=== PATIENT | female | born 1985 | race Caucasian/White ===

== ENCOUNTER 2020-03-18 10:34 | Outpatient (REF) | payer BC, SELFPAY ==
--- NOTE | 2020-03-18 09:00 | PAPFT_PTH ---
PATIENT: Elif Noonan LOC: [facility] U#:[id number] AGE/SX: 35/F ROOM: RE03/18/[address]: Lisa Patel : 1985 BED: DIS: 03/18/2020 SPEC #: [id number] RECD: 03/18/20 13:04 STATUS: MACKENZIE CUNNINGHAM #: [id number] EDOUARD: 03/18/20 09:[address]: Lisa Patel DEPT: [facility] Cytology RECD BY: Edwige Marroquin Tissues: 1 - CX/ENDOCX FOR PAP SMEARS Procedures: PAP THIN PREP/[facility] Screening HPV DNA PROBE Comments: [id number]
[2020-03-18 14:03] LABS: Hemoglobin A1C 5.3 % (<5.7)
[2020-03-18 14:13] LABS: Calculated LDL 115 mg/dL (<100); Cholesterol 190 mg/dL (<200); HDL Cholesterol 48 mg/dL (40-60); Triglyceride 135 mg/dL (<150)
== END 2020-03-18 10:54 ==
LOC: NCHCN 10:34
PROVIDERS: PCP Registered Nurse; Visit Provider Registered Nurse
DX: Z00.00 Encounter for general adult medical examination without abnormal findings (principal); Z13.1 Encounter for screening for diabetes mellitus; Z83.3 Family history of diabetes mellitus; Z13.220 Encounter for screening for lipoid disorders; Z12.4 Encounter for screening for malignant neoplasm of cervix; Z11.51 Encounter for screening for human papillomavirus (HPV)
CPT/HCPCS: 80061; 88142; 83036; 87624

== ENCOUNTER 2020-11-03 09:18 | Outpatient (REF) | payer BC, SELFPAY ==
[2020-11-03 16:24] LABS: HCT 37.6 % (36.0-46.0); HGB 11.7 g/dL (11.2-15.7); MCH 27.2 pg (27.0-33.0); MCHC 31.1 % (32.0-36.0); MCV 87.4 fL (80-95); MPV 10.9 fL (8.0-11.0); Platelet Count 246 10^3/uL (130-400); RDW 15.9 % (11.7-14.6); RDW-SD 50.8 fL; WBC 6.34 10^3/uL (4.4-10.8)
[2020-11-03 17:25] LABS: TSH 0.81 uIU/mL (0.36-3.74)
== END 2020-11-03 09:19 | disposition home or self-care (01) ==
LOC: NCHCN 09:18
PROVIDERS: PCP Registered Nurse; Referring Provider Registered Nurse; Visit Provider Registered Nurse
DX: R53.83 Other fatigue (principal)
CPT/HCPCS: 85027; 84443

== ENCOUNTER → 2022-01-04 02:31 | Outpatient (CLI) | payer BC, SELFPAY ==
--- NOTE | 2022-01-04 | DI.MRI_ITS ---
Exam(s) MR LOWER EXTREMITY RT WO/W EXAM: MR LOWER EXTREMITY RT WO/W CLINICAL HISTORY: SUBCUTANEOUS MASS, R22.9 TECHNIQUE: Multiplanar multisequence MRI of the right lower leg was performed. CONTRAST MATERIAL: IV Contrast: 20 ML of Dotarem contrast administered. COMPARISON: No exams were available for comparison FINDINGS: There is normal marrow signal. No evidence of an occult fracture. The muscle shows normal signal and size. No muscular fatty atrophy is seen. The tendons are unremar kable. There is edema seen in the soft tissues around the leg. No focal fluid collection is seen to suggest an abscess. Following contrast administration, there is mild enhancement in the soft tissues of the anterior medial lower leg. This may represent a cellulitis. No abscess or mass is seen in the soft tissues. IMPRESSION: 1. No evidence of a mass or enhancing lesion. 2. No evidence of an occult fracture. 3. Edema in the lower extremity and mild enhancement of the soft tissues in the anterior medial thigh which may represent a cellulitis. DATA REPOSITORY:
[2022-01-04] MEDS: Gadoterate meglumine 20 ML VIAL IVP (13:47)
[2022-01-04] MEDS: Normal Saline Flush 10 ML SYR IVP (13:50)
== END ==
PROVIDERS: PCP Registered Nurse; Visit Provider Registered Nurse
DX: R60.0 Localized edema (principal)
CPT/HCPCS: 73720

== ENCOUNTER 2022-01-11 11:58 | Outpatient (REF) | payer BC, SELFPAY ==
[2022-01-11 14:30] LABS: Abs Immature Grans 0.07 10^3/uL (0.0-0.06); Absolute Basophil Count 0.08 10^3/uL (0.0-0.2); Absolute Monocyte Count 0.72 10^3/uL (0.1-0.8); Absolute Neutrophil Count 4.31 10^3/uL (1.2-6.7); Basophils % 1.1; Eosinophils % 1.4; HGB 11.4 g/dL (11.2-15.7); Immature Grans % 0.9; Lymphocytes % 28.5; MCH 25.9 pg (27.0-33.0); MCHC 30.8 % (32.0-36.0); MCV 84 fL (80-95); MPV 10.7 fL (8.0-11.0); Monocytes % 9.8; Neutrophils % 58.3; Platelet Count 291 10^3/uL (130-400); RBC 4.41 10^6/uL (3.93-5.22); RDW 15.6 % (11.7-14.6); WBC 7.38 10^3/uL (4.4-10.8)
== END 2022-01-11 11:59 | disposition home or self-care (01) ==
LOC: NCHCN 11:58
PROVIDERS: PCP Registered Nurse; Visit Provider Registered Nurse
DX: R53.83 Other fatigue (principal); R22.9 Localized swelling, mass and lump, unspecified
CPT/HCPCS: 85025

== ENCOUNTER 2023-01-29 15:32 | Outpatient (REF) | payer BC, SELFPAY ==
[2023-01-29 14:51] LABS: Abs Immature Grans 0.03 10^3/uL (0.0-0.06); Absolute Basophil Count 0.05 10^3/uL (0.0-0.2); Absolute Eosinophil Count 0.12 10^3/uL (0.0-0.7); Absolute Neutrophil Count 3.31 10^3/uL (1.2-6.7); Basophils % 0.9; Eosinophils % 2.2; HCT 35.4 % (36.0-46.0); HGB 11.1 g/dL (11.2-15.7); Immature Grans % 0.5; Lymphocytes % 27.2; MCH 27.5 pg (27.0-33.0); MCHC 31.4 % (32.0-36.0); MCV 88 fL (80-95); MPV 10.7 fL (8.0-11.0); Monocytes % 9.1; Neutrophils % 60.1; Platelet Count 267 10^3/uL (130-400); RBC 4.03 10^6/uL (3.93-5.22); RDW 14.6 % (11.7-14.6); RDW-SD 47.1 fL; WBC 5.51 10^3/uL (4.4-10.8)
[2023-01-29 15:36] LABS: ALT 23 U/L (14-59); AST 18 U/L (15-37); Albumin 3.5 g/dL (3.4-5.0); Alkaline Phosphatase 60 U/L (46-116); Anion Gap 7.3 mmol/L (3-11); BUN 12 mg/dL (7-18); Bilirubin, Total 0.6 mg/dL (0.2-1.0); CO2 25.7 mmol/L (21.0-32.0); CREATININE 0.9 mg/dL (0.55-1.02); Calcium 9.1 mg/dL (8.5-10.1); Chloride 107 mmol/L (98-107); Glucose 99 mg/dL (74-106); Lipase 42 U/L (16-77); Potassium 3.9 mmol/L (3.5-5.1); Sodium 140 mmol/L (136-145); Total Protein 7.4 g/dL (6.4-8.2)
--- OUTSIDE RECORDS SUMMARY | 2023-01-29 15:46 | XMS_ITS | CCD ---
Author Name Unknown Address [address] [place] [address] [id number] Organization Unknown Address [address] [place] [address] [id number] Care Team Providers Care Dolly Operator Name Role Phone PIPER RENE Attending Physician [phone] Vital Signs Unknown or Not Available. Allergies Allergy Code Allergy Type Reaction Status PENICILLIN 0 Drug allergy Active CHLORHEXIDINE 2358 Drug allergy Active Procedures Unknown or Not Available. History of Immunizations Unknown or Not Available. Problems Unknown or Not Available. Results Unknown or Not Available. Active Medications Unknown or Not Available. Medications Administered During Visit Unknown or Not Available. Encounters Encounter Diagnosis Diagnosis Code Start Date Cough [id number] 11/08/2022 Social History Unknown or Not Available. Patient Decision Aids Unknown or Not Available. Discharge Instructions You were admitted to [facility] on 11/08/2022 09:34 with a principal diagnosis of Other specified cough You were discharged from [facility] on 11/08/2022 09:34 Should you have any questions prior to discharge, please contact a member of your healthcare team. If you have left the hospital and have any questions, please contact your primary care physician. Chief Complaint and Reason For Visit Unknown or Not Available. Function Status Unknown or Not Available. Plan of Care Unknown or Not Available. Referral/Transition of Care Unknown or Not Available.
== END 2023-01-29 15:33 | disposition home or self-care (01) ==
LOC: NCHCN 15:32
PROVIDERS: PCP Registered Nurse; Visit Provider Physician Assistant
DX: R10.11 Right upper quadrant pain (principal)
CPT/HCPCS: 80053; 83690; 85025

== ENCOUNTER 2023-02-01 03:35 | Outpatient (CLI) | payer BC, SELFPAY ==
--- OUTSIDE RECORDS SUMMARY | 2023-02-01 03:38 | XMS_ITS | CCD ---
Author Name Unknown Address [address] [place] [address] [id number] Organization Unknown Address [address] [place] [address] [id number] Care Team Providers Care Couturiere Name Role Phone JOELLE ROBLERO Attending Physician [phone] JOELLE ROBLERO Er Physician 4 [phone] GWEN Acosta Registered Nurse [phone] Vital Signs Vital Sign Value Unit Date/Time Recent/Initial ? BMI (Body Mass Index) 35.56 kg/m^2 10/28/2022 02: 30 Initial VS Weight Measured 255 lbs 10/28/2022 02:30 Ini tial VS Height 71 in 10/28/2022 02:30 Initial VS BSA (Body Surface Area) 2.41 m^2 10/28/2022 0 2:30 Initial VS BP Systolic 154 mmHg 10/28/2022 02:30 Initial VS BP Diastolic 110 mmHg 10/28/2022 02:30 Initia l VS Respiratory Rate 18 bpm 10/28/2022 02:30 In itial VS Heart Rate 96 bpm 10/28/2022 02:30 Initial VS O2 % BldC Oximetry 99 % 10/28/2022 02:30 Initial VS Body Temperature 36.6 degrees 10/28/2022 02:30 In itial VS BP Systolic 115 mmHg 10/28/2022 03:00 Most Re cent VS BP Diastolic 78 mmHg 10/28/2022 03:00 Most R ecent VS Respiratory Rate 16 bpm 10/28/2022 03:[address] Recent VS Heart Rate 84 bpm 10/28/2022 03:47 Most Rec ent VS O2 % BldC Oximetry 99 % 10/28/2022 03:47 Most Recent VS Allergies Allergy Code Allergy Type Reaction Status PENICILLIN 0 Drug allergy Active CHLORHEXIDINE 2358 Drug allergy Active Procedures Procedure Code Procedure Type Date PRESSURIZED/NONPRESSURIZED INHALATION TREATMENT 360756 [address] 10/28/2022 PRESSURIZED/NONPRESSURIZED INHALATION TREATMENT 194914 [address] 10/28/2022 History of Immunizations Unknown or Not Available. Problems Unknown or Not Available. Results [facility] GENEXPERT* - Co llect Date/Time: 10/28/2022 03:00 Test Name Code Test Result Test Units Test Ref Rang e NANCYID 51418-0 NEGATIVE N/A Normal: Negati ve SOURCE= 18215-4 Nasopharyngeal N/A Tier- 88964-5 SYMPTOMS N/A Active Medications Unknown or Not Available. Medications Administered During Visit Medication Dose Units Frequency Route Date/Time of Last Dose ALBUTEROL/IPRATROP UPDRAFT:2.5/0.5MG/3ML 3 ML X1 INH 2022 03:29 ALBUTEROL HFA INHALER 6.7GM: 90MCG/INH 1 PUFF X1 INH 10/28/2022 04:1 2 Encounters Encounter Diagnosis Diagnosis Code Start Date Cough [id number] 10/28/2022 Social History Unknown or Not Available. Patient Decision Aids Unknown or Not Available. Discharge Instructions You were admitted to [facility] on 10/28/2022 02:24 with a principal diagnosis of Cough, unspecified You had the following procedures done:PRESSURIZED/NONPRESSURIZED INHALATION TREATMENTPRESSURIZED/NONPRESSURIZED INHALATION TREATMENT You had the following tests done:[employer] [facility] [employer] GEN[facility]* You were discharged from [facility] on 10/28/2022 04:16 Should you have any questions prior to discharge, please contact a member of your healthcare team. If you have left the hospital and have any questions, please contact your primary care physician. Chief Complaint and Reason For Visit Chief Complaint Date of Onset COUGHING AND WHEEZING Function Status Unknown or Not Available. Plan of Care Unknown or Not Available. Referral/Transition of Care Unknown or Not Available.
--- OUTSIDE RECORDS SUMMARY | 2023-02-01 03:38 | XMS_ITS | CCD ---
Author Name Unknown Address [address] [place] [address] [id number] Organization Unknown Address [address] [place] [address] [id number] Care Team Providers Care Paedodontist Name Role Phone PIPER RENE Attending Physician [phone] Vital Signs Unknown or Not Available. Allergies [...] Encounter Diagnosis Diagnosis Code Start Date Cough [id number] 11/08/2022 Social History Unknown or Not Available. Patient Decision Aids Unknown or Not Available. Discharge Instructions You were admitted to [facility] on 11/08/2022 09:34 with a principal diagnosis of Other specified cough You were discharged from [facility] on 11/08/2022 09:34 Should you have any [...]
[2023-02-01] MEDS: Levalbuterol HFA 15 GM INH 4 PUFF IH (16:44)
[2023-02-01] MEDS: Inhaler, Assist Device 1 EACH MC (16:44)
--- NOTE | 2023-02-15 08:03 | W.PFT ---
Date of service: 02/01/23 Time of Service: 15:11 Pulmonary Function Test Result Indications: Chronic Cough Interpretation Spirometry: There is no airflow limitation. No bronchodilator response. Lung Volumes: Normal lung volumes Diffusion Capacity: Normal diffusion Airway Pressure: Normal airways resistance Impression Normal pulmonary function testing Clinical Correlation therefore is recommended.
== END 2023-02-01 03:36 | disposition home or self-care (01) ==
LOC: RT 03:36
PROVIDERS: PCP Registered Nurse; Visit Provider Physician Assistant
DX: R05.3 Chronic cough (principal)
CPT/HCPCS: 94060; 94726; 94729

== ENCOUNTER 2024-08-13 18:59 | Outpatient (REF) | payer BC, SELFPAY ==
[2024-08-13 21:17] LABS: ALT 26 U/L (14-59); AST 18 U/L (15-37); Albumin 3.9 g/dL (3.4-5.0); Alkaline Phosphatase 62 U/L (46-116); Anion Gap 7.6 mmol/L (3-11); BUN 9 mg/dL (7-18); Bilirubin, Total 0.8 mg/dL (0.2-1.0); CO2 26.4 mmol/L (21.0-32.0); CREATININE 0.8 mg/dL (0.55-1.02); Calculated LDL 92 mg/dL (<100); Chloride 105 mmol/L (98-107); Cholesterol 172 mg/dL (<200); Estimated GFR 94.87 (mL/min/1.73m2); Glucose 88 mg/dL (74-106); HDL Cholesterol 40 mg/dL (>or=50); Sodium 139 mmol/L (136-145); Total Protein 7.6 g/dL (6.4-8.2); Triglyceride 200 mg/dL (<150)
== END 2024-08-13 19:00 | disposition home or self-care (01) ==
LOC: NCHCN 18:59
PROVIDERS: PCP Registered Nurse; Visit Provider Family Medicine
DX: R60.0 Localized edema (principal)
CPT/HCPCS: 80053; 80061; 84443